=== PATIENT | female | born 1935 | race African-American/Black ===

== ENCOUNTER 2020-07-15 12:47 | Emergency (ER) | payer OTHER ==
--- NOTE | 2020-07-15 13:12 | PDOC ---
History of Present Illness - General Stated Complaint: CARDIAC ARREST Time Seen by Provider: 07/15/20 13:07 History Source: EMS, Snf Records, Old Records Exam Limitations: Clinical Condition - History of Present Illness Initial Comments: 07/15/20 13:09 Sandy Neely is an 84F with PMH trach/PEG, ESRD, DM, AFIB, sent from [facility] for cardiac arrest. 11:20AM patient was found and trach was out. Respiratory arrived at bedside, patient unresponsive, witnessed arrest. Pulseless, apneic, asystole. CPR started for ~20min. EMS arrived, CPR in progress, ACLS started. Attempted to reinsert trach into tracheostomy stoma, unable. Placed 7.0 ETT with etCO2 70. Given 4x epi, 1x Bicarb, 1x CaCl, 1x HCO3, 2mg Mag, 150mg amiodarone spiked into 1L NS. IO placed into L shoulder. Paced to rate 70. ROSC achieved, BIBA to [facility]. BP 120/76, HR 62 unpaced. Unable to visualize heart on bedside US. Pulse lost at 12:45, regained at 12:49. 2x epi given and 1x HCO3. Goals of care discussed with family at 12:50, sons decided to cease efforts and allow to pass peacefully. Pulses lost again. Apneic off of mechanical ventilation. 50mcg Fentanyl given IV. Total time down 1 hour. Pronounced by attending with family at bedside. Review of Systems - Review of Systems Able to Perform ROS?: No (unresponsive) *Physical Exam - Physical Exam General Appearance: Yes: Nourished, Appropriately Dressed, Obese, Other (unresponsive in bed, intubated on vent, IO to left shoulder) HEENT: positive: Symmetrical. negative: Scleral Icterus (R), Scleral Icterus (L), Pharyngeal Erythema, Tonsillar Exudate, Tonsillar Erythema Neck: positive: Trachea midline, Supple, Decreased range of motion. negative: Lymphadenopathy (R), Lymphadenopathy (L) Respiratory/Chest: negative: Normal Breath Sounds (vented breath sounds), Crackles, Rales, Rhonchi, Stridor, Wheezing Cardiovascular: positive: Regular Rhythm (paced), Bradycardia. negative: Tachycardia Gastrointestinal/Abdominal: positive: Normal Bowel Sounds, Soft, Protuberent. negative: Tender, Distended, Guarding, Rebound Musculoskeletal: positive: Normal Inspection. negative: Vertebral Tenderness Extremity: positive: Normal Inspection, Normal Range of Motion, Pelvis Stable, Pedal Edema, Swelling Integumentary: positive: Normal Color, Dry, Cold. negative: Ecchymosis Neurologic: negative: Fully Oriented, Alert, Normal Mood/Affect, Normal Response, Motor Strength 5/5 Medical Decision Making - Medical Decision Making 07/15/20 23:55 Patient presented to [facility] post-ROSC after cardiac arrest with patient's trach out of place. Likely arrest due to hypoxia due to loss of secure airway. Intubated and position confirmed at bedside. Lost pulses again in [facility] ED, coded again. Per family discussion patient allowed to pass away peacefully without further compressions. Discharge - Discharge Information Problems reviewed: Yes Clinical Impression/Diagnosis: Cardiac arrest Condition: - Follow up/Referral Referrals: Luis Enrique Orantes MD [Primary Care Provider] - - Patient Discharge Instructions - Post Discharge Activity
--- NOTE | 2020-07-15 13:37 | PDOC ---
Documentation entered by Cherise Pickard SCRIBE, acting as scribe for Arsalan Isidro MD. Arsalan Isidro MD: This documentation has been prepared by the Neeraj mitchell Lincy, SCRIBE, under my direction and personally reviewed by me in its entirety. I confirm that the documentation accurately reflects all work, treatment, procedures, and medical decision making performed by me. Attending Attestation - Resident Resident Name: Dante Walton - ED Attending Attestation I have performed the following: I have examined & evaluated the patient, The case was reviewed & discussed with the resident, I agree w/resident's findings & plan, Exceptions are as noted - HPI HPI: 07/15/20 13:20 The patient is an 84 year old female with past medical history significant for DM, s/p pacemaker, Afib, ESRD, and trach/peg who presents to the emergency department from [facility] via EMS for cardiac arrest. Per EMS, the patient was found unresponsive by the respiratory therapist, who initiated CPR. EMS reports the patients trach had become dislodged, they were unable to reinsert the tube, so the patient was intubated on the field. The patient was given 4 of epinephrine, 2g of Mg, 150mg of amiodarone in NS and calcium chloride. Patients blood glucose on the field was 262. The patient was recently admitted for pneumonia and discharged to [facility] for rehab. - Physicial Exam PE: 07/15/20 13:34 Vitals: Triage Vital signs reviewed General Appearance: Intubated Head: Atraumatic, Edematous eyelids tongue face Eyes: Fixed and dilated Cardiac: Regular rate and rhythym, Lungs: Bilateral breath sounds Abdomen: Soft, non distended, normal bowel sounds, non tender to palpation Extremities: Full range of motion to all extremities, no cyanosis, clubbing, or edema Skin: Warm and dry, no rashes or lesions, no rash, no petechiae Neuro: Unresponsive - Critical Care Time Total Critical Care Time: 60 Critical Care Statement: The care of this patient involved high complexity decision making to prevent further life threatening deterioration of the patient's condition and/or to evaluate & treat vital organ system(s) failure or risk of failure. - Medical Decision Making 07/15/20 13:35 84 years old multiple core morbidities presents in cardiac arrest. [facility] had become [facility]ged patient found asystolic CPR started 20 minutes prior to EMS arrival. Upon EMS arrival high-quality CPR performed at the [facility] amnio given with return of spontaneous circulation Transported emergently to the [facility] ED Upon arrival patient began to bradycardia down became hypotensive asystolic arrest. Again high-quality CPR initiated 2 rounds additional CPR given with return of spontaneous vital signs Family at the bedside. Patient beginning to become hypotensive again goals of care discussed with family. At this time family does not want to continue with CPR. Not consistent with patient's wishes. Patient given 1 dose IV fentanyl family asked for vent to be turned off. 1:10 PM no spontaneous respirations no cardiac activity patient pronounced Condolences offered to family. Case discussed with clinical medical assistant office not clinical medical assistant case. mail examiner Francisco #[phone] Discharge - Discharge Information Problems reviewed: Yes Clinical Impression/Diagnosis: Cardiac arrest Condition: - Follow up/Referral - Patient Discharge Instructions - Post Discharge Activity
[2020-07-15 13:52] VITALS: BMI 37.9
[2020-07-15 14:09] VITALS: BP 0/0; PULSE 0
== END 2020-07-15 16:52 | disposition expired ==
LOC: JER 12:47
PROC: 3E033NZ Introduction of Analgesics, Hypnotics, Sedatives into Peripheral Vein, Percutaneous Approach (ICD-10-PCS; principal; 2020-07-15)
DX: I46.9 Cardiac arrest, cause unspecified (principal)
CPT/HCPCS: 99285-25